=== PATIENT | female | born 1955 | race Hispanic/Latino ===

== ENCOUNTER 2017-07-08 05:27 | Inpatient (IN) | payer BC, OTHER ==
[~2017-07-08] VITALS: Ht 167.6 cm; Wt 74.8 kg
[2017-07-08] MEDS ORDERED: SODIUM CHLORIDE 0.9% 1000ML 1,000 ML IV ONE ×2 (05:55→08:41)
[2017-07-08] MEDS ORDERED: ONDANSETRON HCL MDV 20ML 2 MG/ML VIAL ONE (05:55)
[2017-07-08] MEDS ORDERED: MORPHINE SULFATE 4 MG/1ML SYG ONE ×2 (05:56→08:42)
[2017-07-08 05:57] LABS: EOSINOPHILS % (AUTO) 9.5 % (0.0-8.0); HEMATOCRIT 39.5 % (36-48); LYMPHOCYTES % (AUTO) 29.8 % (21.0-51.0); MEAN CORPUSCULAR HEMOGLOBIN 31.9 pg (27.0-33.0); MEAN CORPUSCULAR HGB CONC 35.1 g/dL (32.0-36.0); MEAN CORPUSCULAR VOLUME 90.9 fL (79-99); MONOCYTES % (AUTO) 6.9 % (3.0-13.0); NEUTROPHILS % (AUTO) 52.8 % (40.0-77.0); PLATELET COUNT (AUTO) 483 K/uL (130-400); RED BLOOD CELL COUNT(AUTO) 4.35 MIL/uL (4.00-5.50); RED CELL DISTRIBUTION WIDTH 13.1 % (11.0-15.5)
[2017-07-08 06:21] LABS: CARBON DIOXIDE 27 mmol/L (21-32); CHLORIDE 105 mmol/L (101-111); GLOMERULAR FILTR. RATE CALC 60 mL/min (>60); GLUCOSE,RANDOM 102 mg/dL (70-105); POTASSIUM 4.1 mmol/L (3.5-5.1); SODIUM SERUM 141 mmol/L (136-145); UREA NITROGEN, BLOOD 14 mg/dL (7-18)
[2017-07-08 06:35] LABS: ALANINE AMINOTRANSFERASE 35 U/L (12-78); ALBUMIN 3.8 g/dL (3.5-5.0); ASPARTATE AMINOTRANSFERASE 25 U/L (10-37); BILIRUBIN,TOTAL 0.2 mg/dL (0.2-1.0); CREATINE KINASE MB < 0.5 ng/mL (0.5-3.6); CREATINE KINASE, TOTAL 48 U/L (21-232); LIPASE 174 U/L (114-286); TOTAL PROTEIN, SERUM 7.5 g/dL (6.0-8.3)
[2017-07-08] MEDS: SODIUM CHLORIDE 0.9% 1000ML 1,000 ML IV SCH (07:40)
[2017-07-08] MEDS ORDERED: MORPHINE SULFATE 4 MG/1ML SYG IV PRN (07:45)
[2017-07-08] MEDS ORDERED: POTASSIUM CHLORIDE 10% ELIXIR 20 MEQ/15 ML UDCUP PO PRN (07:45)
[2017-07-08] MEDS ORDERED: MORPHINE SULFATE 2 MG/ML 1ML SYG IV PRN (07:45)
[2017-07-08] MEDS ORDERED: NITROGLYCERIN 0.4 MG SL TAB SL PRN (07:45)
[2017-07-08] MEDS ORDERED: POTASSIUM CHLORIDE 20MEQ/100ML 100 ML IV PRN (07:45)
[2017-07-08] MEDS ORDERED: CEFTRIAXONE 1GM/D5W 50ML 50 ML IV SCH (07:45)
[2017-07-08] MEDS ORDERED: ACETAMINOPHEN 325 MG TAB PO PRN ×2 (07:45)
[2017-07-08] MEDS ORDERED: POTASSIUM CHLORIDE 20 MEQ ERTAB PO PRN (07:45)
[2017-07-08] MEDS ORDERED: MAG HYDROX/AL HYDROX/SIMETH ES 30 ML SUSP UDCUP PO PRN (07:45)
[2017-07-08] MEDS ORDERED: HYDRALAZINE HCL 20 MG/ML VIAL IV PRN (07:45)
[2017-07-08] MEDS ORDERED: ACETAMINOPHEN-CODEINE 300/30MG TAB PO PRN (07:45)
[2017-07-08] MEDS ORDERED: LIDOCAINE HCL-MPF 1% 2ML VIAL IVP PRN (07:45)
[2017-07-08] MEDS ORDERED: ONDANSETRON HCL 4 MG/2 ML VIAL IV PRN (07:45)
[2017-07-08] MEDS ORDERED: LACTULOSE 20 GM/30 ML UDCUP PO PRN (07:45)
[2017-07-08] MEDS ORDERED: GUAIFENESIN-DM 200/20 MG 10 ML PO PRN (07:45)
[2017-07-08] MEDS ORDERED: CEFTRIAXONE SODIUM 1 GM ONE (08:41)
[2017-07-08] MEDS ORDERED: SODIUM CHLORIDE 0.9% 50 ML IV ONE (08:43)
[2017-07-08] MEDS: FAMOTIDINE 20MG TAB 20 MG TAB PO SCH ×2 (09:00→20:47)
[2017-07-08 10:04] VITALS: BP 127/77
[2017-07-08] MEDS ORDERED: OMEP20CA10 PO (10:58)
[2017-07-08] MEDS ORDERED: AMLO5TAB2 PO (10:58)
[2017-07-08] MEDS ORDERED: SIMV40TA5 PO (10:58)
[2017-07-08] MEDS ORDERED: BENA1TAB19 PO (10:58)
[2017-07-08 12:58] VITALS: BP 131/74
[2017-07-08] MEDS: ACETAMINOPHEN-CODEINE 300/30MG TAB PO PRN ×2 (13:23→19:38)
[2017-07-08] MEDS: METRONIDAZOLE 500MG/100ML BAG 100 ML IV SCH ×2 (13:24→22:31)
[2017-07-08 15:39] VITALS: BP 119/77
[2017-07-08 19:39] VITALS: BP 143/87
[2017-07-08 23:27] VITALS: BP 112/71
[2017-07-09] VITALS (23 sets, daily range): BP systolic 99–144; BP diastolic 58–86
[2017-07-09] MEDS: SODIUM CHLORIDE 0.9% 1000ML 1,000 ML IV SCH ×2 (01:29→16:48)
[2017-07-09] MEDS: ACETAMINOPHEN-CODEINE 300/30MG TAB PO PRN ×2 (01:37→08:04)
[2017-07-09 04:34] LABS: HEMATOCRIT 35.2 % (36-48); MEAN CORPUSCULAR HEMOGLOBIN 31.2 pg (27.0-33.0); MEAN CORPUSCULAR HGB CONC 34.4 g/dL (32.0-36.0); MEAN CORPUSCULAR VOLUME 90.7 fL (79-99); PLATELET COUNT (AUTO) 408 K/uL (130-400); RED BLOOD CELL COUNT(AUTO) 3.88 MIL/uL (4.00-5.50); WHITE BLOOD COUNT (AUTO) 6.1 K/uL (4.8-10.8)
[2017-07-09 05:08] LABS: ALBUMIN 3.2 g/dL (3.5-5.0); BILIRUBIN,TOTAL 0.4 mg/dL (0.2-1.0); CREATININE 0.9 mg/dL (0.5-1.5); POTASSIUM 4.1 mmol/L (3.5-5.1); TOTAL PROTEIN, SERUM 6.9 g/dL (6.0-8.3)
[2017-07-09] MEDS: METRONIDAZOLE 500MG/100ML BAG 100 ML IV SCH ×3 (06:11→21:51)
[2017-07-09] MEDS ORDERED: AMLODIPINE BESYLATE 5 MG TAB PO ONE (07:51)
[2017-07-09] MEDS: FAMOTIDINE 20MG TAB 20 MG TAB PO SCH ×2 (08:03→21:51)
[2017-07-09] MEDS: AMLODIPINE BESYLATE 5 MG TAB PO SCH (08:03)
[2017-07-09] MEDS: CEFTRIAXONE SODIUM 1 GM IVP SCH (08:10)
[2017-07-09] MEDS ORDERED: ONDANSETRON HCL MDV 20ML 2 MG/ML VIAL ONE (11:21)
[2017-07-09] MEDS ORDERED: BUPIVACAINE/PF 0.5% 30ML VIAL ONE (11:39)
[2017-07-09] MEDS: ATORVASTATIN CALCIUM 20 MG TABLET PO SCH (11:58)
[2017-07-09] MEDS: PANTOPRAZOLE SODIUM 40 MG TABLET.DR PO SCH (11:58)
[2017-07-09] MEDS ORDERED: DEXAMETHASONE SOD PHOSPHATE 10MG/ML 1ML VIAL ONE (19:26)
[2017-07-09] MEDS ORDERED: GLYCOPYRROLATE 0.2 MG/ML 5 ML VIAL ONE (19:26)
[2017-07-09] MEDS ORDERED: LIDOCAINE PF 2% 5ML ABBOJECT ONE (19:26)
[2017-07-09] MEDS ORDERED: SUCCINYLCHOLINE 200MG/10ML SYR ONE (19:26)
[2017-07-09] MEDS ORDERED: FENTANYL CITRATE PF 50 MCG/1 ML 2ML VIAL ONE (19:27)
[2017-07-09] MEDS ORDERED: MIDAZOLAM HCL 1 MG/ML 2ML VIAL ONE (19:27)
[2017-07-09] MEDS ORDERED: PROPOFOL 10 MG/ML 20ML VIAL IV ONE (19:27)
[2017-07-09] MEDS ORDERED: MEPERIDINE-PF 25 MG/ML SYG ONE ×2 (20:51→20:59)
[2017-07-10 00:26] VITALS: BP 101/65
[2017-07-10] MEDS ORDERED: LACTATED RINGERS 1000ML 1,000 ML IV SCH (01:30)
[2017-07-10] MEDS: SODIUM CHLORIDE 0.9% 1000ML 1,000 ML IV SCH (02:34)
[2017-07-10 04:02] VITALS: BP 114/68
[2017-07-10] MEDS: ACETAMINOPHEN-CODEINE 300/30MG TAB PO PRN (04:32)
[2017-07-10 04:50] LABS: HEMATOCRIT 34.7 % (36-48); MEAN CORPUSCULAR HEMOGLOBIN 32.1 pg (27.0-33.0); MEAN CORPUSCULAR HGB CONC 35.4 g/dL (32.0-36.0); MEAN CORPUSCULAR VOLUME 90.8 fL (79-99); PLATELET COUNT (AUTO) 401 K/uL (130-400); RED BLOOD CELL COUNT(AUTO) 3.82 MIL/uL (4.00-5.50); RED CELL DISTRIBUTION WIDTH 12.9 % (11.0-15.5)
[2017-07-10 05:19] LABS: BILIRUBIN,TOTAL 0.4 mg/dL (0.2-1.0); CREATININE 0.9 mg/dL (0.5-1.5); TOTAL PROTEIN, SERUM 6.8 g/dL (6.0-8.3)
[2017-07-10] MEDS: METRONIDAZOLE 500MG/100ML BAG 100 ML IV SCH ×2 (06:04→14:00)
[2017-07-10 07:00] VITALS: BP 113/65
[2017-07-10] MEDS: FAMOTIDINE 20MG TAB 20 MG TAB PO SCH (08:46)
[2017-07-10] MEDS: AMLODIPINE BESYLATE 5 MG TAB PO SCH (08:46)
[2017-07-10] MEDS: ATORVASTATIN CALCIUM 20 MG TABLET PO SCH (08:47)
[2017-07-10] MEDS: CEFTRIAXONE SODIUM 1 GM IVP SCH (08:48)
[2017-07-10] MEDS ORDERED: TRAM50TA2 PO (09:49)
[2017-07-10 11:00] VITALS: BP 116/67
[2017-07-10] MEDS: PANTOPRAZOLE SODIUM 40 MG TABLET.DR PO SCH (13:09)
== END 2017-07-10 13:40 | disposition home or self-care (01) | DRG 419 ==
LOC: EDH 05:27 → OBSVTOIN 07:41 → EDHIP 07:41 → WSH 10:29
PROVIDERS: ADMIT Internal Medicine; ATTEND Internal Medicine
PROC: 0FT44ZZ Resection of Gallbladder, Percutaneous Endoscopic Approach (ICD-10-PCS; principal; 2017-07-09 19:28)
DX: K80.00 Calculus of gallbladder with acute cholecystitis without obstruction (principal); E78.5 Hyperlipidemia, unspecified; I10 Essential (primary) hypertension; K66.0 Peritoneal adhesions (postprocedural) (postinfection); K82.8 Other specified diseases of gallbladder; Z82.49 Family history of ischemic heart disease and other diseases of the circulatory system
CPT/HCPCS: 36415; 74181; 76705; 80053; 82550; 82553; 83690; 84484; 85025; 85027; 88304; 93005; A4218; J0330; J0696; J1100; J2001; J2175; J2250; J2270; J2704; J3010; J3490; J7030

== ENCOUNTER → 2018-01-28 | Outpatient (CLI) | payer BC ==
[~2018-01-28] MED LIST: AMLO5TAB7 PO; BENA1TAB19 PO; OMEP20CA10 PO; SIMV40TA5 PO; TRAM50TA2 PO
== END | disposition home or self-care (01) ==
LOC: SHCH 10:32
PROVIDERS: ATTEND Internal Medicine Cardiovascular Disease
DX: R00.2 Palpitations (principal); R94.31 Abnormal electrocardiogram [ECG] [EKG]
CPT/HCPCS: 93306